=== PATIENT | male | born 1965 | race Caucasian/White ===

== ENCOUNTER → 2018-06-17 | Outpatient (CLI) | payer OTHER ==
[~2018-06-17] MED LIST: ADULT LOW DOSE81 MG PO; AVAPRO300 MG PO; AVAPRO75 MG PO; B COMPLETE1 EAC1 PO; BYSTOLIC 5 MG5 M1 PO; BYSTOLIC10 MG PO; CEFDINIR300 MG PO; CLARITIN10 MG PO; CYMBALTA20 MG PO; CYMBALTA60 MG PO; DEPO-TESTO100 MG/1 M IM; FIBER PO; MELATONIN 5 MG1 EAC1 PO; SIMVASTATIN10 MG PO; UNICOMPLEX M TA1 TA1 PO; VANCOMYCIN HCL250 MG PO; VANCOMYCIN100 MG/M1 NG; VITAMIN D5000 UNIT PO; ZOCOR20 MG PO
== END ==
LOC: CAT 08:22
DX: Z13.6 Encounter for screening for cardiovascular disorders (principal); E78.00 Pure hypercholesterolemia, unspecified